=== PATIENT | male | born 1945 | race Caucasian/White ===

== ENCOUNTER 2025-01-26 09:42 | Emergency (ER) | payer OTHER ==
[~2025-01-26] VITALS: Ht 200.7 cm; Wt 81.7 kg
[2025-01-26] MEDS ORDERED: NS 1,000 ML IV SCH ×2 (10:00→14:00)
[2025-01-26] MEDS ORDERED: Diltiazem HCl 5 MG / ML 5ML Vial IV ONE (10:00)
[2025-01-26] MEDS ORDERED: Ondansetron HCl 2 MG / ML 2ML Vial IV ONE (10:00)
[2025-01-26] MEDS ORDERED: Morphine Sulfate 4 MG/1 ML Injection IV ONE (10:00)
[2025-01-26 10:06] LABS: BASOPHILS ABSOLUTE AUTO 0.06 K/mm3 (0.00-0.23); BASOPHILS PERCENT AUTO 0 % (0-2); EOSINOPHILS PERCENT AUTO 0 % (0-6); Hematocrit 42.6 % (37.0-53.0); Hemoglobin 13.7 g/dL (13.5-17.5); IMMATURE GRAN ABSOLUTE AUTO 0.47 K/mm3 (0.00-0.10); IMMATURE GRAN PERCENT AUTO 3 % (0-1); LYMPHOCYTES ABSOLUTE AUTO 1.28 K/mm3 (0.84-5.20); LYMPHOCYTES PERCENT AUTO 8 % (21-46); MONOCYTES ABSOLUTE AUTO 0.31 K/mm3 (0.16-1.47); MONOCYTES PERCENT AUTO 2 % (4-13); Mean Corpuscular HGB 33.6 pg (26.0-34.0); Mean Corpuscular HGB Conc 32.2 g/dL (31.5-36.5); Mean Corpuscular Volume 104 fL (80-100); Mean Platelet Volume 10.9 fL (9.1-12.4); NEUTROPHILS ABSOLUTE AUTO 13.85 K/mm3 (1.96-9.15); NEUTROPHILS PERCENT AUTO 87 % (41-73); Platelet Count 351 K/mm3 (150-400); RDW Coefficient Variation 13.1 % (11.7-14.2); RDW Standard Deviation 50.3 fL (35.1-46.3); Red Blood Cell Count 4.08 M/mm3 (4.30-5.90); White Blood Cell Count 15.97 K/mm3 (4.00-11.30)
[2025-01-26 10:43] LABS: Magnesium, Blood 2.2 mg/dL (1.6-2.4)
[2025-01-26 11:14] LABS: Albumin, Blood 2.6 g/dL (3.4-5.0); Albumin/Globulin Ratio 0.7 (0.8-1.8); Bun/Creatinine Ratio 28.6 (12.0-20.0); Calcium, Blood 8.9 mg/dL (8.5-10.1); Creatinine, Blood 1.4 mg/dL (0.60-1.20); Globulin, Blood 3.9 g/dL (2.2-4.0); Potassium, Blood 5.4 mmol/L (3.5-5.5); Total Protein, Blood 6.5 g/dL (6.4-8.2)
[2025-01-26 11:22] LABS: Calcium, Ionized (POC) 1.07 mmol/L (1.10-1.46); Chloride (POC) 107 mmol/L (98-108); Creatinine (POC) 1.6 mg/dL (0.8-1.3); Glucose (ISTAT POC) 455 mg/dL (70-99); Hemoglobin (POC) 13.9 g/dL (13.5-17.5); Potassium (POC) 4.9 mmol/L (3.5-5.5); Sodium (POC) 136 mmol/L (135-148); Total CO2 (POC) 12 mmol/L (21-32)
--- NOTE | 2025-01-26 11:34 | NUR ---
Pt. is in ED19. Met with Spouse who is outside the ED waiting room contacting family by phone, Spouse verbalized that she is a woman of [place], and expressed gratitude for the spiritual care support. Will remain available to the Pt. and family.
[2025-01-26] MEDS ORDERED: FentaNYL Citrate 50 MCG/ML 2 ML Injection IV SCH (11:35)
[2025-01-26] MEDS ORDERED: Midazolam HCL 50 MG in NS 40 ML IV PRN (11:35)
[2025-01-26 12:53] LABS: Calcium, Blood 8.2 mg/dL (8.5-10.1); Creatinine, Blood 1.38 mg/dL (0.60-1.20); Potassium, Blood 5.2 mmol/L (3.5-5.5)
[2025-01-26] MEDS ORDERED: Sodium Bicarb 8.4% Inj 100 MEQ in Sodium Chloride 0.45% 1,000 ML IV SCH (13:00)
[2025-01-26] MEDS ORDERED: Vasopressin 20 UNITS in NS 100 ML IV SCH (13:20)
[2025-01-26] MEDS ORDERED: Piperacillin/Tazobactam Sod 4.5 GM in NS 100 ML IV ONE (13:25)
[2025-01-26] MEDS ORDERED: Vancomycin HCL 1,250 MG in NS 250 ML IV ONE (13:45)
[2025-01-26] MEDS ORDERED: FLU VACC TS2024-25(6MOS UP)/PF 45 MCG/0.5 ML SYRINGE IM ONE (14:00)
[2025-01-26] MEDS ORDERED: Insulin Human Regular 100 UNIT in NS 100 ML IV SCH (14:05)
--- NOTE | 2025-01-26 15:30 | NUR ---
"Spiritual Care | Code| EOL | Out of Town Home Pt. is in ED19 and being attended by the staff. Spouse is at bedside and she and staff welcome my presence. Prayed for the Pt. and the staff while we were at bedside. Facilitated life review. Pt. coded (again) and this research clerk and Spouse stepped out of the room and this research clerk stayed with her. After several series compressions the doctor brought the Spouse to bedside and in response, the Pt. established a weak pulse. After several minutes another Code was called, and TOD was established at 1501. After staff cleared the room scripture is read, and prayers of blessing are given for the Pt. and the Spouse. Spouse remains at bedside for now. Since the family resides in [place] the family requests [facility]. [id number] [place] [address]. . Will inform the nurse terminal supervisor."
[2025-01-26] MEDS ORDERED: EPINEPhrine HCl 0.1 MG/ML 10ML SYR IV ONE (18:53)
[2025-01-26] MEDS ORDERED: SODIUM BICARB IV ONE (18:53)
[2025-01-26] MEDS ORDERED: Naloxone HCL 0.4 MG/ML 1MLSYR IV ONE (18:53)
[2025-01-27] MEDS ORDERED: Enoxaparin 40 MG/0.4 ML SYR SC SCH (09:00)
== END 2025-01-26 16:49 ==
LOC: ER 09:42
PROVIDERS: Emergency Medicine; Student in an Organized Health Care Education/Training Program
DX: I46.9 Cardiac arrest, cause unspecified (principal); I48.20 Chronic atrial fibrillation, unspecified; E87.20 Acidosis, unspecified; J90 Pleural effusion, not elsewhere classified; R79.89 Other specified abnormal findings of blood chemistry; R74.02 Elevation of levels of lactic acid dehydrogenase [LDH]; Z87.442 Personal history of urinary calculi
CPT/HCPCS: 31500; 36556; 51702; 71045; 71275; 74174; 80047; 80048; 80053; 82010; 82947; 83605; 83690; 83735; 84484; 85014; 85025; 92960; 93005; 93010; 94002; 96365; 96366; 96367; 96368; 96375; 96376; 99291-25; 99292; C1751; J0171; J0282; J1815; J2250; J2270; J2310; J2405; J2543; J3370; J7030; J7050; J7060; Q9967